=== PATIENT | male | born 1995 | race Hispanic/Latino ===

== ENCOUNTER 2018-05-17 10:35 | Emergency (ER) | payer OTHER ==
[2018-05-17 10:40] VITALS: RESP 18; TEMP 98.1; O2SAT 100
[2018-05-17] MEDS ORDERED: Sodium Chloride 0.9% 1,000 ML IV STA (11:03)
[2018-05-17 11:27] LABS: BASO # 0.1 K/uL (0.0-0.2); BASO % 1.1 % (0.0-2.0); EOS % 0.1 % (0.0-4.0); HEMOGLOBIN 15.9 g/dL (12.0-18.0); LYMPH # 1.6 K/uL (1.0-4.3); LYMPH % 16.6 % (20.0-40.0); MEAN CELL VOLUME 90.5 fl (80.0-94.0); MEAN CORPUSCULAR HEMOGLOBIN 31.1 pg (27.0-31.0); MEAN CORPUSCULAR HGB CONC 34.4 g/dL (33.0-37.0); MEAN PLATELET VOLUME 8.5 fl (7.2-11.7); MONO # 0.6 K/uL (0.0-0.8); MONO % 6.3 % (0.0-10.0); NEUT # 7.2 K/uL (1.8-7.0); NEUT % 75.9 % (50.0-75.0); NRBC % 0.1 % (0.0-0.0); RBC 5.12 Mil/uL (4.40-5.90); RED CELL DISTRIBUTION WIDTH 13.3 % (11.5-14.5); WHITE BLOOD COUNT 9.4 K/uL (4.8-10.8)
[2018-05-17 11:35] LABS: ALB/GLOB RATIO 1.4 (1.0-2.1); ALT/SGPT 30 U/L (21-72); AST/SGOT 23 U/L (17-59); BLOOD UREA NITROGEN 15 mg/dl (9-20); CALCIUM 10.5 mg/dL (8.4-10.2); GFR NON-AFRICAN AMERICAN > 60; LIPASE 61 U/L (23-300)
--- NOTE | 2018-05-17 12:07 | ED PDOC ---
HPI:Nausea, Vomiting, Diarrhea Time Seen by Provider: 05/17/18 11:03 Chief Complaint (Nursing): Abdominal Pain Chief Complaint (Provider): Abdominal Pain History Per: Patient History/Exam Limitations: no limitations Onset/Duration Of Symptoms: Days Associated Symptoms: Vomiting. denies: Diarrhea Additional Complaint(s): Perry Dale is a 23 year old male with a past medical history of acute gastritis, who presents to the emergency department complaining of multiple episodes of vomiting. Patient is a [id number] student, majoring in biomedical studies. He states he has not been feeling well for the past few days. He states he has been seen by his fiber picker who has already done an endoscopy but no obvious cause for it was shown. Patient was told that he should grow out of the episodes. Patient reports that he has non-radiating upper abdominal pain and nausea but no fever, chills, diarrhea. PMD: Past Medical History Reviewed: Historical Data, Nursing Documentation, Vital Signs Vital Signs: Last Vital Signs Temp 98.1 F 05/17/18 10:39 Pulse 114 H 05/17/18 10:39 Resp 18 05/17/18 10:39 BP 147/101 H 05/17/18 10:39 Pulse Ox 100 05/17/18 10:39 - Medical History PMH: Gastritis - Surgical History Other surgeries: endoscopy - Family History Family History: States: Unknown Family Hx - Home Medications Home Medications: Ambulatory Orders Medication Instructions Recorded Ciprofloxacin HCl [Cipro] 500 mg PO BID #14 tab 05/17/18 Ondansetron [Zofran] 4 mg PO Q8H #9 tab 05/17/18 metroNIDAZOLE [Flagyl] 500 mg PO TID #30 tab 05/17/18 - Allergies Allergies/Adverse Reactions: Allergies Allergy/AdvReac Type Severity Reaction Status Date / Time No Known Allergies Allergy Verified 05/17/18 10:42 Review of Systems ROS Statement: Except As Marked, All Systems Reviewed And Found Negative Constitutional: Negative for: Fever, Chills Gastrointestinal: Positive for: Nausea, Vomiting, Abdominal Pain. Negative for: Diarrhea Physical Exam - Reviewed Nursing Documentation Reviewed: Yes Vital Signs Reviewed: Yes - Physical Exam Appears: Positive for: No Acute Distress (mild discomfort) Head Exam: Positive for: ATRAUMATIC, NORMOCEPHALIC Skin: Positive for: Normal Color, Warm, Dry Eye Exam: Positive for: Normal appearance, EOMI, PERRL. Negative for: Scleral icterus ENT: Positive for: Other (mucous membrane: dry) Neck: Positive for: Normal, Painless ROM, Supple (no lymphadenopathy) Cardiovascular/Chest: Positive for: Regular Rate, Rhythm. Negative for: Murmur Respiratory: Positive for: Normal Breath Sounds. Negative for: Respiratory Distress Gastrointestinal/Abdominal: Positive for: Tenderness (mild epi-gastric tenderness) Extremity: Positive for: Normal ROM. Negative for: Pedal Edema, Deformity, Other (rash) Neurologic/Psych: Positive for: Alert, Oriented. Negative for: Motor/Sensory Deficits - Laboratory Results Result Diagrams: 05/17/18 11:15 05/17/18 11:15 Lab Results: Total Bilirubin 1.4 mg/dl (0.2-1.3) H 05/17/18 11:15 AST 23 U/L (17-59) 05/17/18 11:15 ALT 30 U/L (21-72) 05/17/18 11:15 Alkaline Phosphatase 74 U/L (38-126) 05/17/18 11:15 Total Protein 8.8 G/DL (6.3-8.2) H 05/17/18 11:15 Albumin 5.0 g/dL (3.5-5.0) 05/17/18 11:15 Globulin 3.7 gm/dL (2.2-3.9) 05/17/18 11:15 Albumin/Globulin Ratio 1.4 (1.0-2.1) 05/17/18 11:15 Lipase 61 U/L (23-300) 05/17/18 11:15 - ECG O2 Sat by Pulse Oximetry: 100 (RA) Pulse Ox Interpretation: Normal Medical Decision Making Medical Decision Making: Time: 1103 Impression: acute gastritis Plan: --Pepcid 20 mg IVP --Reglan 10 mg IV --Sodium chloride 1,000 ml --Zofran inj 4 mg IVP --IV insertion --Urinalysis --CMP --Lipase --Cbc with differential --CT abd/pelvis without po or IV contrast 6818 * Spoke with Dr. Boudreaux, patient's fiber picker, about patient's case. * Doctor has known patient for about x1 year and has had one endoscopy done a year ago and because of recurrent symptoms, patient was sent to GI at [place] where an Endoscopic-CT was done. * Nothing was found and are still trying to figure out the cause. * Dr. Boudreaux recommends to do a CT abd/pelvis while patient is here for any abdominal pathology. 1305 CT FINDINGS: LOWER THORAX: Unremarkable. LIVER: Unremarkable. No gross lesion or ductal dilatation. GALLBLADDER AND BILE DUCTS: Unremarkable. PANCREAS: Unremarkable. No gross lesion or ductal dilatation. SPLEEN: Unremarkable. ADRENALS: Unremarkable. No mass. KIDNEYS AND URETERS: Unremarkable. No hydronephrosis. No solid mass. VASCULATURE: Unremarkable. No aortic aneurysm. No atherosclerotic calcification or mural plaque present. BOWEL: Inflammatory changes identified in the right maría elena colon, descending colon to lesser extent transverse colon, rectum. This be categorized as moderate. Diverticulosis without an acute inflammatory component or other associated pathologic process. APPENDIX: No evidence of acute appendicitis. PERITONEUM: Unremarkable. No free fluid. No free air. LYMPH NODES: Unremarkable. No enlarged lymph nodes. BLADDER: Unremarkable. REPRODUCTIVE: Unremarkable. BONES: No acute fracture. OTHER FINDINGS: None. IMPRESSION: Mild, uncomplicated colitis. Limitations of the current examination: Absence of oral contrast in an individual with a paucity of intra-abdominal pelvic fat precludes optimal assessment of these inflammatory changes. Scribe Attestation: Documented by Bayron Harris, acting as a scribe for Veronica Salcido MD. Provider Scribe Attestation: All medical record entries made by the Scribe were at my direction and personally dictated by me. I have reviewed the chart and agree that the record accurately reflects my personal performance of the history, physical exam, medical decision making, and the department course for this patient. I have also personally directed, reviewed, and agree with the discharge instructions and disposition. 2.30p - patient still nauseous. Retching and vomiting. Labs and imaging reviewed. Offered admission for further treatment. Patient refused. Workup and progress reviewed with Dr. Boudreaux [phone], patient's GI in [facility]. He is aware of the AMA status. He asked for printed report of CT scan and to advise patient to followup with him for outpatient colonoscopy. Disposition - Clinical Impression Clinical Impression: Acute vomiting, Abdominal discomfort, Colitis - Patient ED Disposition Is Patient to be Admitted: No - Disposition Disposition: Against Medical Advice Disposition Time: 14:25 Condition: GUARDED Additional Instructions: Please followup with Dr. Boudreaux. Take medications as prescribed. Prescriptions: Ciprofloxacin HCl [Cipro] 500 mg PO BID #14 tab metroNIDAZOLE [Flagyl] 500 mg PO TID #30 tab Ondansetron [Zofran] 4 mg PO Q8H #9 tab Instructions: Colitis, Nausea and Vomiting, Adult (DC) Forms: [facility] ([employer]) - POA Present On Arrival: None
[2018-05-17] MEDS ORDERED: Iohexol 240 (50 ml) PO ONE (12:12)
[2018-05-17] MEDS ORDERED: Iohexol 240 (50 ml) ONE (12:56)
--- NOTE | 2018-05-17 13:09 | CT ---
Date of service: 05/17/2018 PROCEDURE: CT Abdomen and Pelvis without intravenous contrast HISTORY: abd pain, recurrent vomiting, weight loss COMPARISON: None. TECHNIQUE: Unenhanced. Neither IV nor oral contrast administered Radiation dose: Total exam DLP = 262.45 mGy-cm. This CT exam was performed using one or more of the following dose reduction techniques: Automated exposure control, adjustment of the mA and/or kV according to patient size, and/or use of iterative reconstruction technique. FINDINGS: LOWER THORAX: Unremarkable. LIVER: Unremarkable. No gross lesion or ductal dilatation. GALLBLADDER AND BILE DUCTS: Unremarkable. PANCREAS: Unremarkable. No gross lesion or ductal dilatation. SPLEEN: Unremarkable. ADRENALS: Unremarkable. No mass. KIDNEYS AND URETERS: Unremarkable. No hydronephrosis. No solid mass. VASCULATURE: Unremarkable. No aortic aneurysm. No atherosclerotic calcification or mural plaque present. BOWEL: Inflammatory changes identified in the right maría elena colon, descending colon to lesser extent transverse colon, rectum. This be categorized as moderate. Diverticulosis without an acute inflammatory component or other associated pathologic process. APPENDIX: No evidence of acute appendicitis. PERITONEUM: Unremarkable. No free fluid. No free air. LYMPH NODES: Unremarkable. No enlarged lymph nodes. BLADDER: Unremarkable. REPRODUCTIVE: Unremarkable. BONES: No acute fracture. OTHER FINDINGS: None. IMPRESSION: Mild, uncomplicated colitis. Limitations of the current examination: Absence of oral contrast in an individual with a paucity of intra-abdominal pelvic fat precludes optimal assessment of these inflammatory changes.
[2018-05-17 15:19] VITALS: BP 136/98; PULSE 98
== END 2018-05-17 14:55 | disposition left against medical advice (07) ==
LOC: H.ER 10:35
DX: K52.9 Noninfective gastroenteritis and colitis, unspecified (principal); R11.2 Nausea with vomiting, unspecified
CPT/HCPCS: 74176; 80053; 83690; 85025; 96374; 96375; 96376; 99284; J2405; J2765; J7030; Q9966